=== PATIENT | male | born 1955 | race Native Hawaiian/Other Pacific Islander ===

== ENCOUNTER → 2017-05-25 | Outpatient (CLI) | payer BC | END | disposition home or self-care (01) | LOC: LAB.NP 15:16 | PROVIDERS: ATTEND Family Medicine | DX: Z00.01 Encounter for general adult medical examination with abnormal findings (principal) ==

== ENCOUNTER → 2017-07-31 | Outpatient (CLI) | payer BC ==
--- NOTE | 2017-08-01 10:02 | CT ---
Study: CT Chest. Indication: COPD Technique: CT imaging of the chest obtained without intravenous administration of contrast. This exam was performed according to our departmental dose-optimization program, which includes automated exposure control, adjustment of the mA and/or kV according to patient size and/or use of iterative reconstruction technique. Comparison: None. Findings: Atherosclerosis aorta and coronary arteries. Heart size normal. No pathologically enlarged mediastinal or hilar lymphadenopathy. Degenerative changes of the spine noted. Moderate emphysema with biapical pleural parenchymal scarring and mild fibrosis. Image 35, subtle 3 mm noncalcified right upper lobe pulmonary nodule anteriorly. No consolidation, pleural effusion, or pneumothorax. Linear scarring at the base of the right lower lobe. Image 39 questionable 2 mm noncalcified right lower lobe pulmonary nodule. This could be a tiny calcified granuloma. Impression: Emphysema with several tiny nodules above. Follow-up CT chest in one year recommended. Atherosclerosis. Electronically signed by: Endy Ferrera MD 08/01/2017 10:00 AM [employer]
== END ==
LOC: CT 16:23
PROVIDERS: ATTEND Internal Medicine
DX: J44.9 Chronic obstructive pulmonary disease, unspecified (principal)